=== PATIENT | male | born 1950 | race Hispanic/Latino ===

== ENCOUNTER 2019-06-30 09:57 | Outpatient (CLI) | payer MEDICARE ==
[2019-06-30 12:38] LABS: Chol/HDL Ratio 2.77 %
== END 2019-06-30 09:58 | disposition home or self-care (01) ==
LOC: LAB 09:57
PROVIDERS: ATTEND Internal Medicine
DX: E78.00 Pure hypercholesterolemia, unspecified (principal); R73.03 Prediabetes
CPT/HCPCS: 36415; 80061; 83036